=== PATIENT | male | born 1995 | race African-American/Black ===

== ENCOUNTER 2016-12-16 18:30 | Emergency (ER) | payer OTHER ==
[~2016-12-16] VITALS: Ht 172.7 cm; Wt 77.7 kg
[2016-12-16] MEDS ORDERED: PERCOCET 5/31 TABLET PO (21:03)
[2016-12-16] MEDS ORDERED: NAPROXEN500 MG PO (21:03)
[2016-12-16 21:21] VITALS: BP 118/90
== END 2016-12-16 21:26 | disposition home or self-care (01) ==
LOC: EME 18:30
PROC: 3E0234Z Introduction of Serum, Toxoid and Vaccine into Muscle, Percutaneous Approach (ICD-10-PCS; principal; 2016-12-16)
DX: S92.422A Displaced fracture of distal phalanx of left great toe, initial encounter for closed fracture (principal); S40.012A Contusion of left shoulder, initial encounter; V18.4XXA Pedal cycle driver injured in noncollision transport accident in traffic accident, initial encounter; Y92.410 Unspecified street and highway as the place of occurrence of the external cause; Y93.55 Activity, bike riding; F17.200 Nicotine dependence, unspecified, uncomplicated; Z23 Encounter for immunization
CPT/HCPCS: 73030; 73630; 99281; 99284